=== PATIENT | male | born 1965 | race American Indian/Alaskan Native ===

== ENCOUNTER 2017-01-18 13:53 | Emergency (ER) | payer OTHER ==
[2017-01-18] MEDS ORDERED: CATAPRES PO ONE (14:20)
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
[2017-01-18 14:41] LABS: Basophils % (Auto) 0.5 % (0.0-1.8); Eosinophils % (Auto) 0.3 % (0.0-4.3); Hematocrit 42.8 % (35.5-45.6); Hemoglobin 14.1 gm/dl (11.8-15.2); Mean Corpuscular HGB Conc 33 % (32-34); Mean Corpuscular Hemoglobin 30 pg (28-32); Mean Corpuscular Volume 90 fl (84-94); Platelet Count 476 K/mm3 (140-440); Red Blood Count 4.75 M/mm3 (3.65-5.03); Red Cell Distribution Width 15.3 % (13.2-15.2); White Blood Count 9.2 K/mm3 (4.5-11.0)
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
[2017-01-18 15:02] LABS: Alanine Aminotransferase 12 units/L (7-56); Albumin 4.4 g/dL (3.9-5); Alkaline Phosphatase 99 units/L (35-129); Amylase 108 units/L (27-131); Anion Gap 19 mmol/L; BUN/Creatinine Ratio 16.66; Blood Urea Nitrogen 15 mg/dL (9-20); Calcium 9.9 mg/dL (8.4-10.2); Carbon Dioxide 23 mmol/L (22-30); Chloride 100.3 mmol/L (98-107); Glucose 100 mg/dL (75-100); Lipase 37 units/L (13-60); Potassium 4.2 mmol/L (3.6-5.0); Sodium 138 mmol/L (137-145)
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
[2017-01-18 17:37] VITALS: BP 113/83
== END 2017-01-18 17:32 | disposition home or self-care (01) ==
LOC: ED 13:53
DX: M25.561 Pain in right knee (principal); I16.0 Hypertensive urgency; I10 Essential (primary) hypertension; V49.88XA Car occupant (driver) (passenger) injured in other specified transport accidents, initial encounter; Y92.488 Other paved roadways as the place of occurrence of the external cause; Y93.89 Activity, other specified; Y99.8 Other external cause status
CPT/HCPCS: 36415; 80053; 82150; 83690; 85025

== ENCOUNTER 2017-01-27 08:45 | Outpatient (CLI) | payer OTHER ==
--- NOTE | 2017-01-27 11:05 | Ultrasound Report ---
ULTRASOUND RENAL INDICATION: Hypertension. COMPARISON: None similar. FINDINGS: Renal sonography demonstrates top normal renal cortical echogenicity. Grossly preserved contours. No hydronephrosis. Right kidney measures 10.4 x 4.7 x 4.6 cm with cortical thickness of 1 cm. Left kidney estimated at 11.1 x 4.1 x 5.7 cm with cortical thickness of 1.1 cm. Urinary bladder suboptimally distended and assessed. CONCLUSION: No acute renal sonographic abnormality, as described. Thank you for the opportunity to participate in this patient's care.
--- NOTE | 2017-01-28 15:37 | Vascular Lab Report ---
RENAL ARTERY DUPLEX EXAM: REASON FOR EXAM: Hypertension. NOTE: Visualization is technically adequate. COMMENTS ON THE AORTA: The aorta is patent. Normal flow velocities are observed. No aneurysmal dilatation is noted. Mild atherosclerotic change is identified. The celiac artery is patent with normal flow velocity. The superior mesenteric artery is patent with normal flow velocity. COMMENTS ON THE RIGHT KIDNEY: The kidney measures 10.3 centimeters in greatest dimension. No obvious parenchymal abnormalities are noted. The renal artery is patent. Maximum systolic velocity is 95 cm/sec. This finding is consistent with less than 60% diameter reduction. Renal aortic index is 1.3. This finding is consistent with less than 60% diameter reduction. Overall findings are consistent with less than 60% diameter reduction in the renal artery. COMMENTS ON THE LEFT KIDNEY: The kidney measures 10.6 centimeters in greatest dimension. No obvious parenchymal abnormalities are noted. The renal artery is patent. Maximum systolic velocity is 94 cm/sec. This finding is consistent with less than 60% diameter reduction. Renal aortic index is 1.3. This finding is consistent with less than 60% diameter reduction. Overall findings are consistent with less than 60% diameter reduction in the renal artery. IMPRESSION: RIGHT KIDNEY: Less than 60% diameter reduction in the renal artery. LEFT KIDNEY: Less than 60% diameter reduction in the renal artery.
== END 2017-01-27 08:46 | disposition home or self-care (01) ==
LOC: US 08:45
PROVIDERS: ATTEND Internal Medicine Nephrology
DX: I10 Essential (primary) hypertension (principal); E83.52 Hypercalcemia; N32.89 Other specified disorders of bladder
CPT/HCPCS: 76770; 93975

== ENCOUNTER 2020-03-20 09:04 | Emergency (ER) | payer BC, OTHER ==
[2020-03-20] MEDS ORDERED: cloNIDine 0.1 MG TAB PO ONE (11:36)
[2020-03-20 12:07] LABS: Basophils % (Auto) 0.3 % (0.0-1.8); Hematocrit 46.7 % (35.5-45.6); Hemoglobin 15.7 gm/dl (11.8-15.2); Lymphocytes # (Auto) 0.8 K/mm3 (1.2-5.4); Lymphocytes % (Auto) 10.7 % (13.4-35.0); Mean Corpuscular HGB Conc 34 % (32-34); Mean Corpuscular Volume 95 fl (84-94); Monocytes # (Auto) 0.2 K/mm3 (0.0-0.8); Monocytes % (Auto) 2.2 % (0.0-7.3); Red Blood Count 4.93 M/mm3 (3.65-5.03); Red Cell Distribution Width 15.8 % (13.2-15.2)
--- NOTE | 2020-03-20 12:08 | Emergency Department Report ---
<JERICA LANCASTER - Last Filed: 03/20/20 12:50> ED Headache HPI - General Chief Complaint: Headache Stated Complaint: HEADACHE, STOMACH Time Seen by Provider: 03/20/20 11:15 - History of Present Illness Initial Comments: This is a 55-year-old male nontoxic, well nourished in appearance, no acute signs of distress presents to the ED with c/o of acute headache. Patient stated has not been taking his blood pressure medication for 6 weeks. Stated usually takes Norvasc 10 mg daily. Patient describes headache as diffuse with level of 8 out of 10. Patient denies thunderclap headache. Patient denies any radiation of pain. Patient denies any head trauma. Patient denies any visual changes. Patient denies worse headache. Patient stated that darkness makes headache better and bright lights make the headache worse. Patient denies any numbness, tingling, fever, chills, nausea, vomiting, chest pain, shortness of breath, stiff neck. Patient denies facial drooping or one sided weakness. Patient d enies any radiation of pain. Patient denies any allergies. Quality: moderate, achy Head Injury Location: other (diffuse) Associated Symptoms: denies symptoms. denies: confusion, fatigue, facial pain, fever/chills, flushing, loss of consciousness, nausea/vomiting, nasal congestion, nasal drainage, numbness in legs/feet, rash, seizures, sinus infection, stiff neck, vision changes, weakness Allergies/Adverse Reactions: Allergies No Known Allergies Allergy (Unverified 01/18/17 14:01) Home Medications: Ambulatory Orders HYDROcodone/APAP 5-325 [[place] 5/325] 1 each PO Q6HR PRN #10 tablet 01/18/17 amLODIPine 10 mg PO DAILY #30 tab 03/20/20 ED Review of Systems Constitutional: denies: chills, fever Eyes: denies: eye pain, eye discharge, vision change ENT: denies: ear pain, throat pain Respiratory: denies: cough, shortness of breath, wheezing Cardiovascular: denies: chest pain, palpitations Endocrine: no symptoms reported Gastrointestinal: denies: abdominal pain, nausea, diarrhea Genitourinary: denies: urgency, dysuria Musculoskeletal: denies: back pain, joint swelling, arthralgia Skin: denies: rash, lesions Neurological: headache. denies: weakness, paresthesias Psychiatric: denies: anxiety, depression Hematological/Lymphatic: denies: easy bleeding, easy bruising ED Past Medical Hx - Past Medical History Previous Medical History?: Yes Hx Hypertension: Yes - Surgical History Past Surgical History?: Yes Additional Surgical History: Right testcle removed - Social History Smoking Status: Never Smoker Substance Use Type: None - Medications Home Medications: Home Medications Medication Instructions Recorded Confirmed Last Taken Type HYDROcodone/APAP 5-325 [[place] 1 each PO Q6HR PRN #10 tablet 01/18/17 Unknown Rx 5/325] amLODIPine 10 mg PO DAILY #30 tab 03/20/20 Unknown Rx ED Physical Exam - General Limitations: No Limitations General appearance: alert, in no apparent distress - Head Head exam: Present: atraumatic, normocephalic - Eye Eye exam: Present: normal appearance, PERRL, EOMI - Neck Neck exam: Present: normal inspection, full ROM. Absent: tenderness, meningismus, lymphadenopathy - Respiratory Respiratory exam: Present: normal lung sounds bilaterally. Absent: respiratory distress, wheezes, rales, rhonchi, stridor, chest wall tenderness, accessory muscle use, decreased breath sounds, prolonged expiratory - Cardiovascular Cardiovascular Exam: Present: regular rate, normal rhythm, tachycardia, normal heart sounds. Absent: irregular rhythm, systolic murmur, diastolic murmur, rubs, gallop - Extremities Exam Extremities exam: Present: normal inspection, full ROM - Back Exam Back exam: Present: normal inspection, full ROM. Absent: tenderness, CVA tenderness (R), CVA tenderness (L), muscle spasm, paraspinal tenderness, vertebral tenderness, rash noted - Neurological Exam Neurological exam: Present: alert, oriented X3, normal gait - Expanded Neurological Exam Expanded Patient oriented to: Present: person, place, time Cranial nerves: EOM's Intact: Normal, Facial Sensation: Normal Cerebellar function: Finger to Nose: Normal Motor strength exam: RUE: 5, LUE: 5, RLE: 5, LLE: 5 Best Eye Response (Radha): (4) open spontaneously Best Motor Response ([place]): (6) obeys commands Best Verbal Response ([place]): (5) oriented Radha Total: 15 - Psychiatric Psychiatric exam: Present: normal affect, normal mood - Skin Skin exam: Present: warm, dry, intact, normal color. Absent: rash ED Course - Reevaluation(s) Reevaluation #1: 03/20/20 12:09 Patient is speaking in full sentences with no signs of distress noted. ED Medical Decision Making - Lab Data Result diagrams: 03/20/20 11:58 03/20/20 11:58 Lab Results 03/20/20 03/20/20 Range/Units 11:58 11:58 WBC 7.7 (4.5-11.0) K/mm3 RBC 4.93 (3.65-5.03) M/mm3 Hgb 15.7 H (11.8-15.2) gm/dl Hct 46.7 H (35.5-45.6) % MCV 95 H (84-94) fl MCH 32 (28-32) pg MCHC 34 (32-34) % RDW 15.8 H (13.2-15.2) % Plt Count 296 (140-440) K/mm3 Lymph % (Auto) 10.7 L (13.4-35.0) % [place] % (Auto) 2.2 (0.0-7.3) % Eos % (Auto) 0.0 (0.0-4.3) % Baso % (Auto) 0.3 (0.0-1.8) % Lymph # 0.8 L (1.2-5.4) K/mm3 [place] # 0.2 (0.0-0.8) K/mm3 Eos # 0.0 (0.0-0.4) K/mm3 Baso # 0.0 (0.0-0.1) K/mm3 Seg Neutrophils % 86.8 H (40.0-70.0) % Seg Neutrophils # 6.7 (1.8-7.7) K/mm3 Sodium 134 L (137-145) mmol/L Potassium 4.3 (3.6-5.0) mmol/L Chloride 96.0 L (98-107) mmol/L Carbon Dioxide 22 (22-30) mmol/L Anion Gap 20 mmol/L BUN 8 L (9-20) mg/dL Creatinine 0.8 (0.8-1.5) mg/dL Estimated GFR > 60 ml/min BUN/Creatinine Ratio 10 % Glucose 149 H (75-100) mg/dL Calcium 10.2 (8.4-10.2) mg/dL - Radiology Data Referring Physician: JERICA LANCASTER Patient Name: CLAUDETTE FAM Date of : 1965 Sex: Male Report Date: 2020-03-20 Report Status: Finalized [facility] [address] [id number] Cat Scan Report Signed Patient: CLAUDETTE FAM MR#: [id number] : 1965 Acct:[id number] Age/Sex: 55 / M ADM Date: 03/20/20 Loc: ED Attending Dr: Ordering Physician: JERICA LANCASTER NP Date of Service: 03/20/20 Procedure(s): CT head/brain wo con Accession Number(s): [id number] cc: JERICA LANCASTER NP CT head/brain wo con INDICATION / CLINICAL INFORMATION: 55 years Male; headache. TECHNIQUE: Routine CT head without contrast. All CT scans at this location are performed using CT dose reduction for ALARA by means of automated exposure control. COMPARISON: None. FINDINGS: BRAIN / INTRACRANIAL CONTENTS: There appear to be mild cerebral white matter changes most consistent with microvascular angiopathy. There is a small 3-4 mm focus of decreased a ttenuation within the right thalamus most consistent with old lacunar infarct is; correlation would be needed. The ventricular system is appropriate in size and configuration. There is no CT evidence of acute intracranial hemorrhage or significant mass effect. ORBITS: No significant abnormality of visualized orbits. SINUSES / MASTOIDS: No significant abnormality in the visualized paranasal sinuses or mastoid air cells. CRANIOCERVICAL JUNCTION: No significant abnormality. ADDITIONAL FINDINGS: None. IMPRESSION: 1. There is microvascular angiopathy as detailed above without CT evidence of acute intracranial hemorrhage. Signer Name: Shaka Chiu MD Signed: 03/20/2020 12:38 PM Workstation Name: [id number] Transcribed By: MR Dictated By: Shaka Chiu MD Electronically Authenticated By: Shaka Chiu MD Signed Date/Time: 03/20/20 1238 DD/ 1234 TD/TT: - Medical Decision Making This is a 55-year-old female that presents with headache secondary to uncontrolled hypertension. Patient is stable and was examined by me. Patient i s neurologically stable. There is no stiff neck or neck pain. Vital signs are stable. Patient is afebrile. Patient is notified of the CT results with no questions noted by the patient. Patient received Catapres. Blood pressure decreased. Will refill patients medicatins. Patient was referred to Follow-up with a primary care/neurologist doctor in 3-5 days or if symptoms worsen and continue return to emergency room as soon as possible. At time of discharge, the patient does not seem toxic or ill in appearance. No acute signs of distress noted. Patient agrees to discharge treatment plan of care. No further questions noted by the patient. - Differential Diagnosis Intracranial hemorrhage, migraine headache, hypertension emergency ED Disposition Clinical Impression: Headache Qualifiers: Headache type: unspecified Headache chronicity pattern: episodic headache Intractability: not intractable Qualified Code(s): R51 - Headache HTN (hypertension) Qualifiers: Hypertension type: unspecified Qualified Code(s): I10 - Essential (primary) hypertension Disposition: DC- TO HOME OR SELFCARE Is pt being admited?: No Does the pt Need Aspirin: No Condition: Stable Instructions: Low Sodium Diet (ED), Hypertension (ED) Additional Instructions: Follow-up with a primary care doctor in 3-5 days or if symptoms worsen and continue return to emergency room as soon as possible. Prescriptions: amLODIPine 10 mg PO DAILY #30 tab Referrals: PRIMARY CAREMD [Primary Care Provider] - 3-5 Days MANJINDER DUNN MD [Staff Physician] - 3-5 Days Forms: Work/School Release Form(ED) <ROJAS DYKES - Last Filed: 03/21/20 07:13> ED Review of Systems ROS: Stated complaint: HEADACHE, STOMACH Other details as noted in HPI ED Course Vital Signs 03/20/20 03/20/20 03/20/20 09:15 11:12 11:39 Temperature 98 F Pulse Rate 111 H 93 H Respiratory 16 16 16 Rate Blood Pressure Blood Pressure 166/131 196/137 [Right] O2 Sat by Pulse 98 100 Oximetry 03/20/20 03/20/20 03/20/20 11:42 13:10 14:00 Temperature Pulse Rate 93 H 92 H 89 Respiratory 16 16 Rate Blood Pressure 196/137 Blood Pressure 164/120 154/92 [Right] O2 Sat by Pulse 98 Oximetry ED Medical Decision Making - Lab Data Result diagrams: 03/20/20 11:58 03/20/20 11:58 Critical care attestation.: If time is entered above; I have spent that time in minutes in the direct care o f this critically ill patient, excluding procedure time. ED Disposition Is pt being admited?: No Does the pt Need Aspirin: No
[2020-03-20 12:16] LABS: Platelet Count 296 K/mm3 (140-440)
[2020-03-20 12:27] LABS: BUN/Creatinine Ratio 10; Blood Urea Nitrogen 8 mg/dL (9-20); Calcium 10.2 mg/dL (8.4-10.2); Hemolysis Index 4
--- NOTE | 2020-03-20 12:43 | Cat Scan Report ---
CT head/brain wo con INDICATION / CLINICAL INFORMATION: 55 years Male; headache. TECHNIQUE: Routine CT head without contrast. All CT scans at this location are performed using CT dos e reduction for ALARA by means of automated exposure control. COMPARISON: None. FINDINGS: BRAIN / INTRACRANIAL CONTENTS: There appear to be mild cerebral white matter changes most consistent with microvascular angiopathy. There is a small 3-4 mm focus of decreased attenuation within the righ t thalamus most consistent with old lacunar infarct is; correlation would be needed. The ventricular system is appropriate in size and configuration. There is no CT evidence of acute intracranial hemorr zach or significant mass effect. ORBITS: No significant abnormality of visualized orbits. SINUSES / MASTOIDS: No significant abnormality in the visualized paranasal sinuses or mastoid air jhoan ls. CRANIOCERVICAL JUNCTION: No significant abnormality. ADDITIONAL FINDINGS: None. IMPRESSION: 1. There is microvascular angiopathy as detailed above without CT evidence of acute intracranial hemo rrhage. Signer Name: Shaka Chiu MD Signed: 03/20/2020 12:38 PM Workstation Name: [id number]
[2020-03-20 14:23] VITALS: BP 154/92
== END 2020-03-20 14:10 | disposition home or self-care (01) ==
LOC: ED 09:04
DX: R51 Headache (principal); I10 Essential (primary) hypertension; Z98.890 Other specified postprocedural states; Z79.899 Other long term (current) drug therapy
CPT/HCPCS: 36415; 70450; 80048; 85025